=== PATIENT | female | born 2000 | race Caucasian/White ===

== ENCOUNTER 2020-10-26 06:54 | Emergency (ER) | payer OTHER ==
[2020-10-26 07:10] VITALS: BP 105/69; PULSE 89; TEMP 97.8; BMI 26.2
== END 2020-10-26 09:04 | disposition home or self-care (01) ==
LOC: JERFT 06:54 → JER 06:54 → JERFT 09:04
DX: J45.21 Mild intermittent asthma with (acute) exacerbation (principal)
CPT/HCPCS: 99281-25

== ENCOUNTER 2022-04-17 17:23 | Emergency (ER) | payer OTHER ==
[2022-04-17 17:51] VITALS: BP 113/77; PULSE 76; RESP 18; TEMP 98.7; BMI 24.0
[2022-04-17] MEDS ORDERED: ACETAMINOPHEN 500 MG TABLET (FP) PO ONE (18:17)
[2022-04-17] MEDS ORDERED: ACETAMINOPHEN 500 MG TABLET (FP) ONE (20:08)
== END 2022-04-17 20:32 | disposition home or self-care (01) ==
LOC: JER 17:23
DX: B34.9 Viral infection, unspecified (principal)
CPT/HCPCS: 0241U-QW; 84703; 99283-25

== ENCOUNTER 2022-06-12 20:16 | Emergency (ER) | payer OTHER ==
[2022-06-12 20:39] VITALS: BP 103/62; PULSE 88; RESP 16; TEMP 98.8; BMI 24.0
[2022-06-12] MEDS ORDERED: ACETAMINOPHEN 500 MG TABLET (FP) PO ONE (21:14)
[2022-06-12] MEDS ORDERED: ACETAMINOPHEN 500 MG TABLET (FP) ONE (21:29)
[2022-06-12 22:22] LABS: THROAT:GRP A STREP DETECTED (NOTDETECTED)
== END 2022-06-12 22:57 | disposition left against medical advice (07) ==
LOC: JERFT 20:16
DX: J02.0 Streptococcal pharyngitis (principal); H92.03 Otalgia, bilateral; R05.1 Acute cough; Z20.822 Contact with and (suspected) exposure to COVID-19
CPT/HCPCS: 0241U-QW; 87651; 99283-25

== ENCOUNTER 2023-11-06 16:12 | Emergency (ER) | payer OTHER ==
[2023-11-06 16:18] VITALS: BP 101/67; PULSE 105; RESP 18; TEMP 98.3; BMI 26.4
[2023-11-06] MEDS ORDERED: diphenhydrAMINE HCL 25 MG CAPSULE (FP) PO ONE (16:34)
[2023-11-06] MEDS ORDERED: DEXAMETHASONE SOD PHOSPHATE 10 MG/1 ML VIAL ONE (16:34)
[2023-11-06] MEDS ORDERED: FAMOTIDINE 20 MG TABLET ONE (16:34)
[2023-11-06] MEDS: diphenhydrAMINE HCL 25 MG CAPSULE (FP) PO ONE (16:39)
[2023-11-06] MEDS: DEXAMETHASONE LIQUID 0.5 MG/5 ML PO ONE (16:39)
[2023-11-06] MEDS: FAMOTIDINE 20 MG TABLET PO ONE (16:39)
[2023-11-06] MEDS: DEXAMETHASONE 4 MG TABLET (FP) PO ONE (16:39)
== END 2023-11-06 18:11 | disposition home or self-care (01) ==
LOC: JER 16:12
DX: O99.891 Other specified diseases and conditions complicating pregnancy (principal); R20.2 Paresthesia of skin; O9A.211 Injury, poisoning and certain other consequences of external causes complicating pregnancy, first trimester; T78.40XA Allergy, unspecified, initial encounter; Z3A.17 17 weeks gestation of pregnancy
CPT/HCPCS: 99283-25

== ENCOUNTER 2023-11-16 21:11 | Emergency (ER) | payer OTHER ==
[2023-11-16 21:20] VITALS: RESP 20; TEMP 98; BMI 27.1
[2023-11-16 23:53] LABS: BASO % 0.4 % (0-2.0); EOS % 8.8 % (0-4.5); HEMATOCRIT 30.1 % (32.4-45.2); HEMOGLOBIN 10.4 GM/dL (10.7-15.3); MCH 30.4 pg (25.7-33.7); MCHC 34.5 g/dl (32.0-36.0); MEAN CELL VOLUME 88.1 fl (80-96); MEAN PLT VOLUME 8.5 fl (7.5-11.1); MONO % 5.3 % (3.8-10.2); NEUT % 66.5 % (42.8-82.8); PLATELET COUNT 251 10^3/uL (134-434); RBC 3.41 M/mm3 (3.60-5.2); WHITE BLOOD COUNT 10.2 K/mm3 (4.0-10.0)
[2023-11-16] MEDS: LACTATED RINGERS SOLUTION 1000 ML INFUS.BAG IV ONE (23:53)
[2023-11-17 00:02] LABS: EPI CELLS >36 /uL (0-25.1); HYALINE CASTS 2 /uL (0-3.1); URINE APPEARANCE CLOUDY; URINE BACTERIA 8386 /uL (0-1359); URINE BILIRUBIN NEGATIVE (NEGATIVE); URINE COLOR YELLOW; URINE GLUCOSE (UA) NEGATIVE (NEGATIVE); URINE KETONE TRACE (NEGATIVE); URINE LEUK ESTERASE 2+ (NEGATIVE); URINE NITRITE NEGATIVE (NEGATIVE); URINE PROTEIN TRACE (NEGATIVE); URINE RBC 4 /uL (0-23.9); URINE WBC 115 /uL (0-25.8)
[2023-11-17 00:10] LABS: POTASSIUM 3.7 mmol/L (3.5-5.1)
[2023-11-17 00:13] LABS: ALBUMIN 2.9 g/dl (3.4-5.0); BLOOD UREA NITROGEN 12.6 mg/dL (7-18); CALCIUM 8.6 mg/dL (8.5-10.1)
[2023-11-17 00:15] LABS: CREATININE 0.5 mg/dL (0.55-1.3)
[2023-11-17 00:18] LABS: BILIRUBIN,TOTAL 0.2 mg/dL (0.2-1); TOT PROT 6.6 g/dl (6.4-8.2)
[2023-11-17] MEDS ORDERED: CEFTRIAXONE 1 GM/50 ML BAG ONE (00:45)
[2023-11-17] MEDS: CEFTRIAXONE 1 GM in DEXTROSE 5%-WATER - 100 ML IVPB ONE (00:47)
[2023-11-17 01:15] VITALS: BP 100/70; PULSE 72
== END 2023-11-17 01:15 | disposition home or self-care (01) ==
LOC: JER 21:11
DX: O23.42 Unspecified infection of urinary tract in pregnancy, second trimester (principal); O26.892 Other specified pregnancy related conditions, second trimester; R10.30 Lower abdominal pain, unspecified; Z3A.18 18 weeks gestation of pregnancy
CPT/HCPCS: 36415; 76815; 80053; 81003; 84702; 85025; 87077; 87086; 87491; 87591; 87661; 99284-25